=== PATIENT | male | born 1955 | race Two or more races ===

== ENCOUNTER 2019-11-04 15:46 | Inpatient (IN) | payer MEDICARE, OTHER ==
[~2019-11-04] VITALS: Ht 167.6 cm; Wt 71.0 kg
[2019-11-04] MEDS ORDERED: ONDANSETRON HCL 4 MG/2 ML VIAL IV ONE (16:15)
[2019-11-04] MEDS ORDERED: ASPirin 81 mg TAB PO ONE (16:15)
[2019-11-04] MEDS ORDERED: MORPHINE SULFATE 4 MG/ML SYR/VIAL IV ONE (16:15)
[2019-11-04 16:47] LABS: Basophils # (auto) 0 10 ^3/uL (0-0.2); Basophils % (auto) 0.2 % (0.0-2.0); Eosinophils # (auto) 0.1 10 ^3/uL (0-0.8); Eosinophils % (auto) 0.6 % (0.0-7.0); Hematocrit 44.3 % (41.0-53.0); Hemoglobin 14.8 g/dL (13.5-17.5); Lymphocytes % (auto) 7.7 % (10.0-50.0); Mean Corpuscular Hemoglobin 29.8 pg (28.0-32.0); Mean Corpuscular Hgb Conc. 33.5 g/dL (32.0-36.0); Monocytes # (auto) 1.1 10 ^3/uL (0-1.3); Monocytes % (auto) 8.2 % (0.0-12.0); Neutrophils # (auto) 10.8 10 ^3/uL (1.6-8.6); Neutrophils % (auto) 83.3 % (37.0-80.0); Platelet Count (auto) 208 10^3/uL (140-450); Red Blood Cells 4.97 10^6/uL (4.5-5.90); Red Cell Distribution Width 13.5 % (11.8-14.3); White Blood Cell 12.9 10^3/uL (4.4-10.8)
[2019-11-04 17:04] LABS: Albumin 3.9 g/dL (3.4-5.0); Anion Gap 8 (5-15); Blood Urea Nitrogen 13 mg/dL (7-18); Calcium 8.4 mg/dL (8.5-10.1); Carbon Dioxide 24 mmol/L (21-32); Chloride 106 mmol/L (98-107); GFR African American 96 mL/min; GFR Non-African American 79 mL/min; Glucose 143 mg/dL (74-106); Magnesium 1.9 mg/dL (1.6-2.6); Potassium 4.1 mmol/L (3.5-5.1); Sodium 138 mmol/L (136-145)
[2019-11-04 17:10] LABS: Alanine Aminotransferase 29 U/L (16-61); Alkaline Phosphatase 93 U/L (45-117); Aspartate Aminotransferase 19 U/L (15-37); Bilirubin, Total 0.7 mg/dL (0.2-1.0); Total Protein 7.5 g/dL (6.4-8.2)
[2019-11-04] MEDS ORDERED: hydrALAZINE HCL 20 MG/ML VL IV PRN (19:00)
[2019-11-04] MEDS ORDERED: NITROGLYCERIN 0.4 MG SL TAB SL PRN (19:00)
[2019-11-04] MEDS ORDERED: ACETAMINOPHEN 500 MG TAB PO PRN (19:00)
[2019-11-04] MEDS ORDERED: HYDROcodone-ACET 5/325MG TAB PO PRN (19:00)
[2019-11-04] MEDS ORDERED: MORPHINE SULF INJ 2 MG/ML SYRINGE 1ML IV PRN (19:00)
[2019-11-04] MEDS ORDERED: ONDANSETRON HCL 4 MG/2 ML VIAL IV PRN (19:00)
[2019-11-04] MEDS: ATORVASTATIN 20 MG TAB PO SCH (21:27)
[2019-11-04] MEDS: METOPROLOL TARTRATE 25 MG TAB PO SCH (21:27)
[2019-11-04] MEDS: DOCUSATE SOD 100 MG CAP PO SCH (21:27)
[2019-11-04 21:29] VITALS: BP 145/87
--- NOTE | 2019-11-04 21:30 | NUR ---
ADMITTED PATIENT FROM THE ER, AAOX4. NO DISTRESS NOTED. AFEBRILE. NO SOB NOTED. COMPLAINED OF CHEST PAIN, BUT TOLERABLE FOR NOW. INTRODUCED MYSELF TO THE PATIENT. ORIENTATION GIVEN. ROUTINE ADMISSION DONE. POCS DISCUSSED WITH PATIENT AND SHOWED UNDERSTANDING. BED KEPT ON LOWEST POSITION. SIDE RAILS UP. CALL LIGHT/TABLE IN REACH. KEPT COMFORTABLE.
[2019-11-04 21:57] LABS: Urine WBC None Seen /hpf (0 - 3)
[2019-11-04] MEDS: MORPHINE SULF INJ 2 MG/ML SYRINGE 1ML IV PRN (22:00)
[2019-11-04 22:20] LABS: Urine Bacteria NONE SEEN /hpf (None Seen); Urine Blood Negative /uL (Negative); Urine Specific Gravity 1.017 (1.001-1.035)
[2019-11-04 22:26] VITALS: BP 145/74
[2019-11-05] MEDS ORDERED: ASP81EC PO (02:34)
[2019-11-05 05:00] VITALS: BP 133/70
[2019-11-05 05:59] LABS: Basophils # (auto) 0 10 ^3/uL (0-0.2); Basophils % (auto) 0.4 % (0.0-2.0); Eosinophils # (auto) 0.1 10 ^3/uL (0-0.8); Eosinophils % (auto) 0.9 % (0.0-7.0); Hematocrit 37.7 % (41.0-53.0); Hemoglobin 13.1 g/dL (13.5-17.5); Lymphocytes # (auto) 1.5 10 ^3/uL (0.4-5.4); Lymphocytes % (auto) 22.9 % (10.0-50.0); Mean Corpuscular Hemoglobin 30.5 pg (28.0-32.0); Mean Corpuscular Hgb Conc. 34.9 g/dL (32.0-36.0); Mean Corpuscular Volume 87.4 fL (80.0-100.0); Monocytes # (auto) 0.7 10 ^3/uL (0-1.3); Monocytes % (auto) 10.3 % (0.0-12.0); Neutrophils # (auto) 4.2 10 ^3/uL (1.6-8.6); Neutrophils % (auto) 65.5 % (37.0-80.0); Platelet Count (auto) 178 10^3/uL (140-450); Red Blood Cells 4.31 10^6/uL (4.5-5.90); Red Cell Distribution Width 13.6 % (11.8-14.3); White Blood Cell 6.4 10^3/uL (4.4-10.8)
[2019-11-05 06:14] LABS: INR 1.13 (0.9-1.15); Partial Thromboplastin Time 27.6 sec (23.64-32.05)
[2019-11-05 06:18] LABS: Calcium 8.2 mg/dL (8.5-10.1); Potassium 3.7 mmol/L (3.5-5.1)
--- NOTE | 2019-11-05 08:01 | NUR ---
OPENING SHIFT NOTE Assumed care of patient. PT is awake and alert. No S/S of distress/SOB. Instructed on POC and to call for assist PRN. Bed low and locked position with side rails up x2. Call light within reach. Will continue to monitor for changes Q1hr and PRN.
[2019-11-05 09:00] VITALS: BP 137/75
[2019-11-05] MEDS ORDERED: LISINOPRIL 10 MG TAB PO SCH (10:00)
[2019-11-05] MEDS: METOPROLOL TARTRATE 25 MG TAB PO SCH (10:00)
[2019-11-05] MEDS: ASPirin-EC 81 mg tab PO SCH (10:03)
[2019-11-05] MEDS: FAMOTIDINE 20 MG TAB PO SCH (10:03)
[2019-11-05] MEDS: DOCUSATE SOD 100 MG CAP PO SCH ×2 (10:04→21:58)
[2019-11-05] MEDS: MORPHINE SULF INJ 2 MG/ML SYRINGE 1ML IV PRN ×3 (10:06→20:15)
[2019-11-05 13:00] VITALS: BP 129/76
[2019-11-05] MEDS ORDERED: NIFE1TAB31 PO (14:58)
[2019-11-05] MEDS ORDERED: ATOR10TA PO (14:58)
[2019-11-05] MEDS ORDERED: TAMS0.4C36 PO (14:58)
[2019-11-05] MEDS ORDERED: ASPI-404 PO (14:58)
[2019-11-05] MEDS ORDERED: LOSA-39 PO (14:58)
[2019-11-05 17:00] VITALS: BP 115/60
[2019-11-05 21:37] VITALS: BP 132/72
[2019-11-05] MEDS: ATORVASTATIN 20 MG TAB PO SCH (21:58)
[2019-11-06] MEDS: MORPHINE SULF INJ 2 MG/ML SYRINGE 1ML IV PRN ×4 (02:23→21:18)
[2019-11-06 05:00] VITALS: BP 137/75
[2019-11-06 05:53] LABS: Hemoglobin 13.7 g/dL (13.5-17.5)
[2019-11-06 06:15] LABS: Magnesium 2.2 mg/dL (1.6-2.6)
--- NOTE | 2019-11-06 07:56 | NUR ---
OPENING SHIFT NOTE Resumed care of patient. No S/S of distress or SOB. Alert and oriented. PT awaiting stress test. Instructed on POC and to call for assist PRN. Bed low and locked position with side rails up x2. Seizure precautions in place. Call light within reach. Will continue to monitor for changes Q1hr and PRN.
[2019-11-06] MEDS ORDERED: ADENOSINE 62 MG in GIVE UN-DILUTED 0 ML IV ONE (08:30)
[2019-11-06 09:00] VITALS: BP 137/74
[2019-11-06] MEDS: DOCUSATE SOD 100 MG CAP PO SCH ×2 (10:26→21:14)
[2019-11-06] MEDS: LISINOPRIL 20 MG TAB PO SCH (10:26)
[2019-11-06] MEDS: ASPirin-EC 81 mg tab PO SCH (10:27)
[2019-11-06] MEDS: NIFEdipine ER 30 MG TAB PO SCH (10:27)
[2019-11-06] MEDS: FAMOTIDINE 20 MG TAB PO SCH (10:27)
[2019-11-06 13:00] VITALS: BP 133/69
--- NOTE | 2019-11-06 14:50 | NUR ---
DR PEÑALOZA IN TO SEE PT. STATED HE WOULD PERFORM LHC TOMORROW. SAID HE WOULD PLACE ORDERS. 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
[2019-11-06 17:00] VITALS: BP 128/71
--- NOTE | 2019-11-06 19:00 | NUR ---
OPENING NOTE REPORT RECEIVED. PATIENT AWAKE IN BED, STILL COMPLAINING OF PAIN ON HIS CHEST, POC EXPLAINED TO PATIENT. CALL LIGHT WITH IN REACH, BED ON LOWEST POSITION.
[2019-11-06] MEDS: ATORVASTATIN 20 MG TAB PO SCH (21:14)
[2019-11-06 22:00] VITALS: BP 129/87
[2019-11-07 05:00] VITALS: BP 133/72
[2019-11-07] MEDS: MORPHINE SULF INJ 2 MG/ML SYRINGE 1ML IV PRN (05:08)
--- NOTE | 2019-11-07 06:24 | NUR ---
PATIENT SLEPT THE ENTIRE NIGHT. NOW HE IS WALKING. MEDICATED HIM FOR PAIN.
--- NOTE | 2019-11-07 07:30 | NUR ---
Opening Shift Note Assumed care of patient, awake and alert. No S/S of distress/SOB or pain. Instructed on POC and to call for assist PRN, will continue to monitor for changes Q1hr and PRN.
[2019-11-07 08:00] VITALS: BP 129/68
[2019-11-07 09:08] VITALS: BP 129/68
--- NOTE | 2019-11-07 10:20 | NUR ---
SPOKE WITH THE PATIENT'S AND OBTAINED TEST RESULTS THAT THEY WANTED PASSED ON TO DR. PEÑALOZA. INFORMATION SENT TO DR. PEÑALOZA.
[2019-11-07] MEDS: DOCUSATE SOD 100 MG CAP PO SCH (10:27)
[2019-11-07] MEDS: FAMOTIDINE 20 MG TAB PO SCH (10:27)
[2019-11-07] MEDS: ASPirin-EC 81 mg tab PO SCH (10:27)
[2019-11-07] MEDS: NIFEdipine ER 30 MG TAB PO SCH (10:28)
[2019-11-07] MEDS: LISINOPRIL 20 MG TAB PO SCH (10:28)
--- NOTE | 2019-11-07 12:20 | NUR ---
OFF UNIT TO PROCEDURE IN THE SCARF AND ANNEAL OPERATOR. NO DISTRESS NOTED AT TIME OF DEPARTURE.
[2019-11-07] MEDS ORDERED: ANGIOMAX 250 MG VIAL IV ONE (12:48)
[2019-11-07] MEDS ORDERED: fentaNYL CITRATE 100 MCG/2 ML VL ONE (12:48)
[2019-11-07] MEDS ORDERED: MIDAZOLAM HCL 1MG/1ML-2 ML VIAL ONE (12:48)
[2019-11-07] MEDS ORDERED: LIDOCAINE 2%HCL (LOCAL ANESTH.) INJ 20ML MDV ONE (12:49)
[2019-11-07] MEDS ORDERED: SODIUM CHL 0.9% 0 ML ONE (12:49)
[2019-11-07] MEDS ORDERED: IOHEXOL 350 MG/ML 100ML IJ ONE (12:49)
[2019-11-07 13:08] VITALS: BP 134/73
--- NOTE | 2019-11-07 14:40 | NUR ---
BACK FROM PROCEDURE IN THE ELECTRICAL MAINTENANCE SUPERVISOR. TOLERATED PROCEDURE WELL. NO OCCURRENCES REPORTED. PATIENT INFORMED THAT THEY NEED TO LAY FLAT UNTIL 1545. INSERTION SITE CLEAN AND DRY. NO SIGNS OF BLEEDING. VS WNL.
[2019-11-07 17:02] VITALS: BP 138/76
--- NOTE | 2019-11-07 18:09 | NUR ---
Discharge instructions given as ordered. Encourage to follow up with PMD as instructed. All questions and concerns addressed. Patient verbalized understanding. Medication reconciliation form completed and copy given to patient. IV removed with catheter intact, pressure dressing applied. Telemetry unit returned to ICU. Patient ambulated to vehicle with all personal belongings, accompanied by staff and family member. No distress noted at time of departure.
== END 2019-11-07 18:09 | disposition home or self-care (01) | DRG 287 ==
LOC: EDBD 15:46 → ER 15:46 → TELE 15:47 → TELE-WESTW 20:40
PROVIDERS: ADMIT Nurse Practitioner Acute Care; ATTEND Internal Medicine
PROC: 4A023N7 Measurement of Cardiac Sampling and Pressure, Left Heart, Percutaneous Approach (ICD-10-PCS; principal; 2019-11-07)
PROC: B2111ZZ Fluoroscopy of Multiple Coronary Arteries using Low Osmolar Contrast (ICD-10-PCS; 2019-11-07)
PROC: B2151ZZ Fluoroscopy of Left Heart using Low Osmolar Contrast (ICD-10-PCS; 2019-11-07)
DX: R07.89 Other chest pain (principal); R65.10 Systemic inflammatory response syndrome (SIRS) of non-infectious origin without acute organ dysfunction; I50.32 Chronic diastolic (congestive) heart failure; R55 Syncope and collapse; R00.1 Bradycardia, unspecified; N40.0 Benign prostatic hyperplasia without lower urinary tract symptoms; E78.5 Hyperlipidemia, unspecified; D72.829 Elevated white blood cell count, unspecified; Z80.9 Family history of malignant neoplasm, unspecified; Z87.442 Personal history of urinary calculi; I11.0 Hypertensive heart disease with heart failure
CPT/HCPCS: 36415; 71045; 75710; 78452; 80048; 80053; 80061; 81001; 83735; 83880; 84132; 84443; 84484; 85014; 85018; 85025; 85610; 85730; 86141; 93005; 93017; 93306; 93454; 96374; 96375; 99152; G0378; J0153; J2250; J2405

== ENCOUNTER 2020-07-24 11:29 | Emergency (ER) | payer MEDICARE, OTHER ==
[~2020-07-24] VITALS: Ht 170.2 cm; Wt 72.6 kg
[~2020-07-24 11:29] MED LIST: ASPI-394 PO; ASPI-543 PO; ATOR10TA PO; LOSA-39 PO; NIFE1TAB31 PO; TAMS0.4C36 PO
[2020-07-24 11:34] VITALS: BP 145/65
[2020-07-24] MEDS ORDERED: TETANUS-DIPTH-ACEL PERTUSSIS 0.5ML SYR Tdap IM ONE (12:45)
[2020-07-24] MEDS ORDERED: LIDOCAINE 1% HCL (LOCAL ANESTH.) INJ 20ML MDV IJ ONE (12:45)
== END 2020-07-24 13:34 | disposition home or self-care (01) ==
LOC: ER 11:29
DX: S61.511A Laceration without foreign body of right wrist, initial encounter (principal); S61.531A Puncture wound without foreign body of right wrist, initial encounter; E78.5 Hyperlipidemia, unspecified; I10 Essential (primary) hypertension; Z87.442 Personal history of urinary calculi; W54.0XXA Bitten by dog, initial encounter; Y93.89 Activity, other specified; Y92.89 Other specified places as the place of occurrence of the external cause; Y99.8 Other external cause status
CPT/HCPCS: 12002; 90471; 90715; 99283; J2001